=== PATIENT | male | born 1960 | race Caucasian/White ===

== ENCOUNTER 2022-10-29 10:41 | Inpatient (IN) | payer MEDICAID ==
[~2022-10-29] VITALS: Ht 182.9 cm; Wt 95.3 kg
[2022-10-29] MEDS ORDERED: MORPHINE SULFATE 4 MG/ML CPJ (NOT FOR IM USE) IV STA (10:56)
[2022-10-29] MEDS ORDERED: ONDANSETRON HCL 4MG/2ML INJ IV STA (10:56)
[2022-10-29] MEDS ORDERED: SODIUM CHLORIDE 0.9% 1000ML BAG (SEPSIS BOLUS) IV ONE (11:00)
[2022-10-29] MEDS ORDERED: PIPERACILLIN/TAZ 3.375G PREMIX 50 ML IV ONE (11:00)
[2022-10-29] MEDS ORDERED: VANCOMYCIN 1G PREMIX 200 ML IV ONE (11:00)
[2022-10-29] MEDS ORDERED: INSULIN REGULAR (HUMULIN R) 300UNITS/3ML VIAL SUBCUT ONE (11:15)
[2022-10-29] MEDS ORDERED: TETANUS, DIPHTHERIA, PERTUSSIS VAC/PF 0.5ML (>10YR OLD) IM ONE (11:30)
[2022-10-29 11:35] LABS: CHLORIDE 92 mEq/L (98-107); HEMATOCRIT. 38.8 % (42.0-52.0); HEMOGLOBIN. 13.4 g/dL (14.0-18.0); MEAN CORPUSCULAR HEMOGLOBIN 31.2 pg (28.0-32.0); MEAN CORPUSCULAR VOLUME 90.5 fL (80.0-94.0); MEAN PLATELET VOLUME 7.9 fl (7.4-10.4); PLATELET 244 x1000/uL (130-400); RED BLOOD CELL COUNT 4.29 mill/uL (4.7-6.1); RED CELL DISTRIBUTION WIDTH 13.6 % (11.6-14.6)
[2022-10-29 11:42] LABS: INR 1.1; PARTIAL THROMBOPLASTIN TIME 27.4 sec (23.4-31.0); PROTHROMBIN TIME 11.9 sec (9.6-11.0)
[2022-10-29 11:58] LABS: PLATELET ESTIMATE NORMAL
[2022-10-29 12:30] LABS: BETA HYDROXYBUTYRATE 0.1 mMol/L (0.0-0.3)
[2022-10-29] MEDS ORDERED: CLINDAMYCIN 600 MG in DEXTROSE 5% WATER 50 ML IV ONE (12:30)
[2022-10-29] MEDS ORDERED: CLINDAMYCIN 600MG PREMIX 50 ML IV SCH (12:45)
[2022-10-29] MEDS ORDERED: DOCUSATE SODIUM 100MG CAPSULE PO PRN (19:15)
[2022-10-29] MEDS ORDERED: ONDANSETRON HCL 4MG/2ML INJ IV PRN (19:15)
[2022-10-29] MEDS ORDERED: GUAIFENESIN 200MG/10ML SUGAR FREE UDC PO PRN (19:15)
[2022-10-29] MEDS ORDERED: MAGNESIUM/ALUMINUM HYDROXIDE/SIMETHICONE 30ML UDC PO PRN (19:15)
[2022-10-29] MEDS ORDERED: CLONIDINE 0.1MG TABLET PO PRN (19:15)
[2022-10-29] MEDS ORDERED: TRAMADOL 50MG TABLET PO PRN (19:15)
[2022-10-29] MEDS: SODIUM CHLORIDE 0.45% 1,000 ML IV SCH (20:00)
[2022-10-29] MEDS ORDERED: PIPERACILLIN/TAZ 3.375G PREMIX 50 ML IV SCH (20:00)
[2022-10-29] MEDS ORDERED: VANCOMYCIN 1,750 MG in DEXT 5% WATER 500 ML IV NR (20:30)
[2022-10-29] MEDS: ENOXAPARIN 40MG/0.4ML SYR SUBCUT SCH (20:58)
[2022-10-29] MEDS: ACETAMINOPHEN 325MG TABLET PO PRN (22:29)
[2022-10-30] VITALS (7 sets, daily range): BP systolic 98–123; BP diastolic 43–89
[2022-10-30] MEDS ORDERED: DEXTROSE 50% WATER 50ML SYRINGE IV PRN (02:00)
[2022-10-30] MEDS ORDERED: CYCL10TA21 PO (02:07)
[2022-10-30] MEDS ORDERED: METO-396 PO (02:07)
[2022-10-30] MEDS ORDERED: INS7030 SUBCUT (02:07)
[2022-10-30] MEDS ORDERED: PROT20 PO (02:07)
[2022-10-30] MEDS ORDERED: ATEN-42 PO (02:07)
[2022-10-30] MEDS ORDERED: TRAM100C3 PO (02:07)
[2022-10-30 03:31] LABS: CLARITY URINE CLEAR (CLEAR); COLOR URINE DARK YELLOW (YELLOW); KETONES URINE NEGATIVE (NEGATIVE); LEUKOCYTE ESTERASE URINE NEGATIVE (NEGATIVE); NITRITE URINE NEGATIVE (NEGATIVE); OCCULT BLOOD URINE 1+ (NEGATIVE); PROTEIN URINE NEGATIVE (NEGATIVE); SPECIFIC GRAVITY URINE 1.033 (1.005-1.030)
[2022-10-30] MEDS: HYDROMORPHONE HCL/PF 2MG/ML CPJ IV PRN ×2 (03:52→09:19)
[2022-10-30] MEDS ORDERED: *PATIENT'S OWN MEDICATION STORAGE XX SCH (04:15)
[2022-10-30] MEDS: PIPERACILLIN/TAZOBACTAM 3.375G in DEXT 5% WATER 50ML IV SCH ×3 (06:00→22:55)
[2022-10-30] MEDS: INSULIN LISPRO 100 UNITS/ML SUBCUT SCH ×4 (06:26→21:36)
[2022-10-30] MEDS: BLOOD SUGAR DIAGNOSTIC STRIP TEST SCH ×4 (06:26→21:35)
[2022-10-30 07:20] LABS: BASOPHILS % 1.3 % (0.0-2.0); EOSINOPHILS % 3.9 % (0.0-5.0); HEMATOCRIT. 36.4 % (42.0-52.0); HEMOGLOBIN. 12.4 g/dL (14.0-18.0); LYMPHOCYTES % 22.2 % (20.0-50.0); MEAN CORPUSCULAR HEMOGLOBIN 30.9 pg (28.0-32.0); MEAN CORPUSCULAR VOLUME 90.7 fL (80.0-94.0); MEAN PLATELET VOLUME 7.5 fl (7.4-10.4); MONOCYTES % 10.3 % (2.0-8.0); NEUTROPHILS % 62.3 % (40.0-76.0); PLATELET 201 x1000/uL (130-400); RED BLOOD CELL COUNT 4.01 mill/uL (4.7-6.1); RED CELL DISTRIBUTION WIDTH 13.5 % (11.6-14.6)
[2022-10-30] MEDS ORDERED: VANCOMYCIN 1G PREMIX 200 ML IV SCH ×2 (08:00→10:00)
[2022-10-30 08:37] LABS: CHLORIDE 94 mEq/L (98-107)
[2022-10-30 08:43] LABS: HDL CHOLESTEROL 23 mg/dL (40-59); LDL CHOLESTEROL 76 mg/dL (5-100)
[2022-10-30] MEDS: AMLODIPINE 10MG TABLET PO SCH (09:00)
[2022-10-30] MEDS: SODIUM CHLORIDE 0.45% 1,000 ML IV SCH ×2 (09:23→20:37)
[2022-10-30] MEDS ORDERED: NALOXONE HCL 0.4MG/ML VIAL IV PRN (15:30)
[2022-10-30] MEDS ORDERED: BUPIVACAINE HCL/PF 0.5% (5MG/ML) 30ML ONE (16:02)
[2022-10-30] MEDS ORDERED: POLYMYXIN B SULFATE 500000 UNITS/VIAL ONE ×2 (16:02→17:09)
[2022-10-30] MEDS ORDERED: LIDOCAINE HCL 1% 20ML VIAL (Pyxis) INJ ONE (16:02)
[2022-10-30] MEDS ORDERED: ONDANSETRON HCL 4MG/2ML INJ IV PRN (16:15)
[2022-10-30] MEDS ORDERED: LABETALOL 5MG/ML SYR 20 MG/4 ML SYRINGE IV PRN (16:15)
[2022-10-30] MEDS ORDERED: MEPERIDINE HCL/PF 25MG/ML CPJ IV PRN (16:15)
[2022-10-30] MEDS ORDERED: HYDROMORPHONE HCL/PF 2MG/ML CPJ IV PRN (16:15)
[2022-10-30] MEDS ORDERED: MIDAZOLAM HCL 2 MG/2 ML VIAL ONE (17:28)
[2022-10-30] MEDS ORDERED: LIDOCAINE HCL 1% 10 MG/ML 10ML VIAL ONE (17:28)
[2022-10-30] MEDS ORDERED: FENTANYL CITRATE/PF 50MCG/ML 2ML VIAL ONE (17:28)
[2022-10-30] MEDS ORDERED: PROPOFOL 200MG/20ML VIAL IV ONE ×2 (17:28→18:07)
[2022-10-30] MEDS ORDERED: GLYCOPYRROLATE 0.2 MG/ML 2ML VIAL ONE (17:35)
[2022-10-30] MEDS: ENOXAPARIN 40MG/0.4ML SYR SUBCUT SCH (20:36)
[2022-10-30] MEDS: VANCOMYCIN 750MG PREMIX 150 ML IV SCH (20:36)
[2022-10-30] MEDS: HYDROCODONE/ACETAMINOPHEN 7.5/325MG TABLET PO PRN (21:42)
[2022-10-31 00:05] VITALS: BP 99/61
[2022-10-31] MEDS: HYDROMORPHONE HCL/PF 2MG/ML CPJ IV PRN ×5 (02:53→23:04)
[2022-10-31] MEDS: VANCOMYCIN 750MG PREMIX 150 ML IV SCH (03:28)
[2022-10-31 04:12] VITALS: BP 112/69
[2022-10-31] MEDS: PIPERACILLIN/TAZOBACTAM 3.375G in DEXT 5% WATER 50ML IV SCH ×3 (05:06→21:32)
[2022-10-31] MEDS: BLOOD SUGAR DIAGNOSTIC STRIP TEST SCH ×4 (06:26→21:33)
[2022-10-31 08:00] VITALS: BP 145/81
[2022-10-31] MEDS: AMLODIPINE 10MG TABLET PO SCH (08:59)
[2022-10-31] MEDS: INSULIN LISPRO 100 UNITS/ML SUBCUT SCH ×4 (08:59→21:33)
[2022-10-31 12:00] VITALS: BP 115/80
[2022-10-31] MEDS ORDERED: LIDOCAINE HCL 1% 10 MG/ML 10ML VIAL ONE (13:47)
[2022-10-31] MEDS: SODIUM CHLORIDE 0.45% 1,000 ML IV SCH (14:01)
[2022-10-31] MEDS: VANCOMYCIN 1G PREMIX 200 ML IV SCH (14:21)
[2022-10-31 15:58] VITALS: BP 109/54
[2022-10-31 20:00] VITALS: BP 102/57
[2022-10-31] MEDS: ENOXAPARIN 40MG/0.4ML SYR SUBCUT SCH (21:32)
[2022-11-01] VITALS: BP 134/74
[2022-11-01] MEDS: HYDROMORPHONE HCL/PF 2MG/ML CPJ IV PRN ×6 (02:17→21:57)
[2022-11-01 04:00] VITALS: BP 126/68
[2022-11-01] MEDS: PIPERACILLIN/TAZOBACTAM 3.375G in DEXT 5% WATER 50ML IV SCH ×3 (05:03→22:06)
[2022-11-01] MEDS: VANCOMYCIN 1G PREMIX 200 ML IV SCH (05:04)
[2022-11-01 05:10] LABS: CHLORIDE 98 mEq/L (98-107)
[2022-11-01] MEDS: BLOOD SUGAR DIAGNOSTIC STRIP TEST SCH ×4 (06:19→21:12)
[2022-11-01] MEDS: INSULIN LISPRO 100 UNITS/ML SUBCUT SCH ×4 (06:19→21:57)
[2022-11-01 08:00] VITALS: BP 100/61
[2022-11-01] MEDS: AMLODIPINE 10MG TABLET PO SCH (09:00)
[2022-11-01] MEDS: SODIUM CHLORIDE 0.45% 1,000 ML IV SCH ×2 (09:46→13:10)
[2022-11-01 12:00] VITALS: BP 121/71
[2022-11-01 16:00] VITALS: BP 128/72
[2022-11-01 20:00] VITALS: BP 144/70
[2022-11-01] MEDS: HYDROCODONE/ACETAMINOPHEN 7.5/325MG TABLET PO PRN ×2 (20:15→23:59)
[2022-11-01] MEDS: ENOXAPARIN 40MG/0.4ML SYR SUBCUT SCH (20:15)
[2022-11-01] MEDS: VANCOMYCIN 1.25GM PMX (XELLIA) 250 ML IV SCH (23:51)
[2022-11-02] VITALS: BP 128/67
[2022-11-02] MEDS: HYDROMORPHONE HCL/PF 2MG/ML CPJ IV PRN ×6 (01:06→21:05)
[2022-11-02 04:00] VITALS: BP 139/71
[2022-11-02] MEDS: PIPERACILLIN/TAZOBACTAM 3.375G in DEXT 5% WATER 50ML IV SCH ×3 (05:46→23:25)
[2022-11-02] MEDS: HYDROCODONE/ACETAMINOPHEN 7.5/325MG TABLET PO PRN (05:46)
[2022-11-02] MEDS: BLOOD SUGAR DIAGNOSTIC STRIP TEST SCH ×4 (06:25→21:00)
[2022-11-02] MEDS: INSULIN LISPRO 100 UNITS/ML SUBCUT SCH ×4 (06:31→23:47)
[2022-11-02 08:00] VITALS: BP 134/75
[2022-11-02] MEDS: AMLODIPINE 10MG TABLET PO SCH (09:40)
[2022-11-02] MEDS: SODIUM CHLORIDE 0.45% 1,000 ML IV SCH ×2 (09:42→16:35)
[2022-11-02 12:00] VITALS: BP 122/61
[2022-11-02 16:00] VITALS: BP 129/73
[2022-11-02 16:44] LABS: CREATINE KINASE 36 IU/L (39-308)
[2022-11-02] MEDS: VANCOMYCIN 1.25GM PMX (XELLIA) 250 ML IV SCH (17:25)
[2022-11-02 20:00] VITALS: BP 140/71
[2022-11-02] MEDS: ENOXAPARIN 40MG/0.4ML SYR SUBCUT SCH (21:04)
[2022-11-03] VITALS: BP 124/77
[2022-11-03 04:00] VITALS: BP 145/74
[2022-11-03] MEDS: SODIUM CHLORIDE 0.45% 1,000 ML IV SCH ×2 (04:34→06:34)
[2022-11-03] MEDS: PIPERACILLIN/TAZOBACTAM 3.375G in DEXT 5% WATER 50ML IV SCH ×2 (06:33→13:19)
[2022-11-03] MEDS: BLOOD SUGAR DIAGNOSTIC STRIP TEST SCH ×4 (06:34→20:49)
[2022-11-03] MEDS: INSULIN LISPRO 100 UNITS/ML SUBCUT SCH ×4 (07:10→20:49)
[2022-11-03 08:00] VITALS: BP 136/74
[2022-11-03] MEDS: HYDROMORPHONE HCL/PF 2MG/ML CPJ IV PRN ×3 (08:09→17:33)
[2022-11-03] MEDS: AMLODIPINE 10MG TABLET PO SCH (08:09)
[2022-11-03] MEDS: INSULIN GLARGINE 100 UNITS/ML SUBCUT SCH (10:00)
[2022-11-03 11:29] LABS: BASOPHILS % 1.3 % (0.0-2.0); EOSINOPHILS % 8.6 % (0.0-5.0); HEMATOCRIT. 32.6 % (42.0-52.0); HEMOGLOBIN. 11.4 g/dL (14.0-18.0); LYMPHOCYTES % 30.2 % (20.0-50.0); MEAN CORPUSCULAR HEMOGLOBIN 31.2 pg (28.0-32.0); MEAN CORPUSCULAR VOLUME 89.5 fL (80.0-94.0); MEAN PLATELET VOLUME 7.3 fl (7.4-10.4); MONOCYTES % 11.1 % (2.0-8.0); NEUTROPHILS % 48.8 % (40.0-76.0); PLATELET 247 x1000/uL (130-400); RED BLOOD CELL COUNT 3.64 mill/uL (4.7-6.1); RED CELL DISTRIBUTION WIDTH 13.1 % (11.6-14.6)
[2022-11-03 12:00] VITALS: BP 112/78
[2022-11-03 12:04] LABS: CHLORIDE 99 mEq/L (98-107)
[2022-11-03] MEDS: VANCOMYCIN 1.25GM PMX (XELLIA) 250 ML IV SCH (12:25)
[2022-11-03 16:00] VITALS: BP 148/82
[2022-11-03] MEDS ORDERED: CEFTRIAXONE 2 G PREMIX 50 ML IV SCH (17:30)
[2022-11-03 20:00] VITALS: BP 127/76
[2022-11-03] MEDS: CEFTRIAXONE 2 G in DEXTROSE 5% WATER 50 ML IV SCH (20:47)
[2022-11-03] MEDS: ENOXAPARIN 40MG/0.4ML SYR SUBCUT SCH (20:47)
[2022-11-04] VITALS: BP 127/79
[2022-11-04] MEDS: ACETAMINOPHEN 325MG TABLET PO PRN ×2 (00:07→04:32)
[2022-11-04 03:29] LABS: CHLORIDE 100 mEq/L (98-107)
[2022-11-04 04:00] VITALS: BP 126/65
[2022-11-04] MEDS: SODIUM CHLORIDE 0.45% 1,000 ML IV SCH ×2 (04:32→17:49)
[2022-11-04] MEDS: BLOOD SUGAR DIAGNOSTIC STRIP TEST SCH ×4 (06:31→20:15)
[2022-11-04] MEDS: INSULIN LISPRO 100 UNITS/ML SUBCUT SCH ×4 (06:47→20:15)
[2022-11-04 08:00] VITALS: BP 139/74
[2022-11-04] MEDS: AMLODIPINE 10MG TABLET PO SCH (08:46)
[2022-11-04] MEDS: HYDROCODONE/ACETAMINOPHEN 10/325MG TABLET PO PRN ×3 (08:47→21:45)
[2022-11-04] MEDS: INSULIN GLARGINE 100 UNITS/ML SUBCUT SCH (10:53)
[2022-11-04 12:00] VITALS: BP 118/59
[2022-11-04 15:34] VITALS: BP 125/72
[2022-11-04] MEDS ORDERED: NALOXONE HCL 0.4MG/ML VIAL IV PRN (16:15)
[2022-11-04] MEDS: CEFTRIAXONE 2 G in DEXTROSE 5% WATER 50 ML IV SCH (17:46)
[2022-11-04 20:00] VITALS: BP 128/68
[2022-11-04] MEDS: ENOXAPARIN 40MG/0.4ML SYR SUBCUT SCH (20:14)
[2022-11-05] VITALS: BP 118/59
[2022-11-05] MEDS: HYDROCODONE/ACETAMINOPHEN 10/325MG TABLET PO PRN ×3 (03:44→20:36)
[2022-11-05 04:00] VITALS: BP 120/78
[2022-11-05] MEDS: BLOOD SUGAR DIAGNOSTIC STRIP TEST SCH ×4 (06:13→21:39)
[2022-11-05] MEDS: INSULIN LISPRO 100 UNITS/ML SUBCUT SCH ×4 (06:13→21:40)
[2022-11-05 08:00] VITALS: BP 132/77
[2022-11-05] MEDS: AMLODIPINE 10MG TABLET PO SCH (09:16)
[2022-11-05] MEDS: INSULIN GLARGINE 100 UNITS/ML SUBCUT SCH (09:20)
[2022-11-05 12:00] VITALS: BP 132/78
[2022-11-05] MEDS: SODIUM CHLORIDE 0.45% 1,000 ML IV SCH (12:02)
[2022-11-05 16:00] VITALS: BP 124/67
[2022-11-05] MEDS: CEFTRIAXONE 2 G in DEXTROSE 5% WATER 50 ML IV SCH (17:49)
[2022-11-05 20:00] VITALS: BP 125/56
[2022-11-05] MEDS ORDERED: AMITRIPTYLINE 50MG TABLET PO SCH (21:00)
[2022-11-05] MEDS: ENOXAPARIN 40MG/0.4ML SYR SUBCUT SCH (21:39)
[2022-11-05] MEDS: AMITRIPTYLINE 25MG TABLET PO SCH (22:25)
[2022-11-06] VITALS: BP 105/67
[2022-11-06] MEDS: SODIUM CHLORIDE 0.45% 1,000 ML IV SCH ×2 (00:29→13:28)
[2022-11-06 04:00] VITALS: BP 124/50
[2022-11-06] MEDS: HYDROCODONE/ACETAMINOPHEN 10/325MG TABLET PO PRN ×3 (04:30→20:48)
[2022-11-06] MEDS: INSULIN LISPRO 100 UNITS/ML SUBCUT SCH ×4 (05:47→20:59)
[2022-11-06] MEDS: BLOOD SUGAR DIAGNOSTIC STRIP TEST SCH ×4 (05:47→20:57)
[2022-11-06 08:00] VITALS: BP 118/62
[2022-11-06] MEDS: INSULIN GLARGINE 100 UNITS/ML SUBCUT SCH (09:11)
[2022-11-06] MEDS: AMLODIPINE 10MG TABLET PO SCH (09:12)
[2022-11-06 12:00] VITALS: BP 106/60
[2022-11-06 16:00] VITALS: BP 114/80
[2022-11-06] MEDS: CEFTRIAXONE 2 G in DEXTROSE 5% WATER 50 ML IV SCH (17:47)
[2022-11-06 20:00] VITALS: BP 136/77
[2022-11-06] MEDS: ENOXAPARIN 40MG/0.4ML SYR SUBCUT SCH (20:46)
[2022-11-06] MEDS: AMITRIPTYLINE 25MG TABLET PO SCH (20:46)
[2022-11-07] VITALS: BP 113/75
[2022-11-07] MEDS: SODIUM CHLORIDE 0.45% 1,000 ML IV SCH ×2 (02:46→17:47)
[2022-11-07 04:00] VITALS: BP 126/73
[2022-11-07] MEDS: BLOOD SUGAR DIAGNOSTIC STRIP TEST SCH ×4 (05:48→20:49)
[2022-11-07] MEDS: INSULIN LISPRO 100 UNITS/ML SUBCUT SCH ×4 (06:12→20:47)
[2022-11-07 08:25] VITALS: BP 121/61
[2022-11-07] MEDS: AMLODIPINE 10MG TABLET PO SCH (08:49)
[2022-11-07] MEDS: HYDROCODONE/ACETAMINOPHEN 10/325MG TABLET PO PRN (08:56)
[2022-11-07] MEDS: INSULIN GLARGINE 100 UNITS/ML SUBCUT SCH (11:07)
[2022-11-07 12:30] VITALS: BP 124/66
[2022-11-07 16:22] VITALS: BP 107/69
[2022-11-07 17:12] VITALS: BP 107/69
[2022-11-07] MEDS: CEFTRIAXONE 2 G in DEXTROSE 5% WATER 50 ML IV SCH (17:46)
[2022-11-07] MEDS: ENOXAPARIN 40MG/0.4ML SYR SUBCUT SCH (20:45)
[2022-11-07] MEDS: AMITRIPTYLINE 25MG TABLET PO SCH (20:45)
== END 2022-11-08 03:20 | disposition home health service (06) | DRG 344 ==
LOC: ER 11:03 → MICUSO 16:02 → EDBEDREQ 16:21 → EDBEDREQTM 16:21 → 7EST 10-30 00:58
PROVIDERS: ADMIT Hospitalist; ATTEND Hospitalist
PROC: 0JBR0ZZ Excision of Left Foot Subcutaneous Tissue and Fascia, Open Approach (ICD-10-PCS; principal; 2022-10-30)
PROC: 02HV33Z Insertion of Infusion Device into Superior Vena Cava, Percutaneous Approach (ICD-10-PCS; 2022-10-31)
PROC: B5181ZA Fluoroscopy of Superior Vena Cava using Low Osmolar Contrast, Guidance (ICD-10-PCS; 2022-10-31)
PROC: B548ZZA Ultrasonography of Superior Vena Cava, Guidance (ICD-10-PCS; 2022-10-31)
DX: E11.621 Type 2 diabetes mellitus with foot ulcer (principal); M86.8X7 Other osteomyelitis, ankle and foot; E43 Unspecified severe protein-calorie malnutrition; L03.116 Cellulitis of left lower limb; E11.40 Type 2 diabetes mellitus with diabetic neuropathy, unspecified; E87.1 Hypo-osmolality and hyponatremia; E88.09 Other disorders of plasma-protein metabolism, not elsewhere classified; E11.69 Type 2 diabetes mellitus with other specified complication; E11.65 Type 2 diabetes mellitus with hyperglycemia; L97.529 Non-pressure chronic ulcer of other part of left foot with unspecified severity; D72.829 Elevated white blood cell count, unspecified; L97.519 Non-pressure chronic ulcer of other part of right foot with unspecified severity; L02.612 Cutaneous abscess of left foot; J44.9 Chronic obstructive pulmonary disease, unspecified; I10 Essential (primary) hypertension; Z68.28 Body mass index [BMI] 28.0-28.9, adult
CPT/HCPCS: 36415; 36573; 71045; 73630; 73721; 80048; 80053; 80061; 80202; 81003; 82010; 82550; 82962; 83036; 83605; 83880; 84145; 84484; 85025; 85651; 86850; 86900; 87070; 87077; 87426; 88305; 90715; 93005; 97022; 97162; 97535; 99285; C1725; J0696; J1170; J1650; J1815; J2250; J2270; J2405; J2543; J2704; J3010; J3370; J3490; J7030; J7060